=== PATIENT | female | born 1975 | race Two or more races ===

== ENCOUNTER 2020-07-06 02:41 | Emergency (ER) | payer OTHER ==
[~2020-07-06] VITALS: Ht 162.6 cm; Wt 101.2 kg
[2020-07-06] MEDS ORDERED: SYNTHROID75 MCG PO (04:12)
== END 2020-07-06 12:41 | disposition home or self-care (01) ==
LOC: ER 02:41
DX: M79.631 Pain in right forearm (principal); I73.9 Peripheral vascular disease, unspecified